=== PATIENT | female | born 1965 | race Caucasian/White ===

== ENCOUNTER → 2023-08-20 09:11 | Outpatient (REF) | payer OTHER, SELFPAY | LOC: HWRAD 09:11 | PROVIDERS: ATTENDING PHYSICIAN Internal Medicine; FAMILY PHYSICIAN Internal Medicine | DX: K75.81 Nonalcoholic steatohepatitis (NASH) (principal) | CPT/HCPCS: 76700 ==

== ENCOUNTER → 2024-01-12 15:44 | Outpatient (REF) | payer OTHER, SELFPAY | LOC: HWRCS 15:44 | PROVIDERS: ATTENDING PHYSICIAN Internal Medicine Interventional Cardiology; FAMILY PHYSICIAN Internal Medicine | DX: I10 Essential (primary) hypertension (principal) | CPT/HCPCS: 93306 ==

== ENCOUNTER → 2024-03-24 15:20 | Outpatient (REF) | payer OTHER, SELFPAY | LOC: HWWDC 15:20 | PROVIDERS: ATTENDING PHYSICIAN Obstetrics & Gynecology Gynecology; FAMILY PHYSICIAN Internal Medicine | DX: Z12.31 Encounter for screening mammogram for malignant neoplasm of breast (principal) | CPT/HCPCS: 77063; 77067 ==

== ENCOUNTER 2024-04-23 22:47 | Emergency (ER) | payer OTHER, SELFPAY ==
[2024-04-23 22:53] VITALS: BMI 40.5
[2024-04-23 23:00] VITALS: BP 146/104
[2024-04-23] MEDS: LET TOPICAL ANESTHETIC GEL 3 ML TOPICAL (23:19)
[2024-04-23] MEDS: PEPCID 20 MG PO (23:19)
--- NOTE | 2024-04-24 00:03 | ED.GENMED ---
History of Present Illness
General
Chief Complaint: Fall
Source: patient and ambulance crew
Exam Limitations: none
Time Seen by Provider: 04/23/24 23:02
Nursing documentation reviewed up to this point in time: agreed with
History of Present Illness
History of Present Illness:
This is a 58-year-old woman who has history of hypertension, GERD, obstructive sleep apnea who states she reached into her car to the passenger side to retrieve a bag in her purse and while attempting to lift these out of her car she remembers
turning and she believes she lost her balance and fell. The next thing she remembers is lying on the ground having struck the back of her head. She complains of a bump to the left posterior scalp region with mild intermittent bleeding from this
area. She also believes she bit the lateral left side of her tongue during the fall. She denies prodrome of dizziness nor lightheadedness nor palpitations. She was not incontinent of bladder nor bowel. She denies neck nor back pain. She does
admit to mild to moderate pain left posterior scalp but denies generalized headache. No vision difficulty. She admits to mild nausea initially which has since resolved. No vomiting.
She has had some intermittent indigestion over the past several weeks and was evaluated by her PCP Thursday, 4 days ago and was recommended to take Pepcid twice daily which has been successful with relief of indigestion.
She denies abdominal pain, no weakness no numbness, she denies extremity pain.
She takes no anticoagulants.
Last Tdap 2.5 years ago, prior to the of her niece.
Past History
Past History
ED Past Medical History: GERD and HTN; Negative CAD, Cancer or CHF
ED Past Surgical History: Cholecystectomy, and Gynecological; Negative Appendectomy, Bowel resection or Cardiac
Social History
Tobacco: Non-smoker
Alcohol: None
Drug: None
Personal:
Living: with family
Employment: Employed
Family History
Family History: Hypertension
Phy Exam
Physical Exam
Physical Exam:
TRAUMA EXAM:
VITAL SIGNS: Vital signs reviewed, cooperative
DISTRESS: No active disease
EYES: Pupils reactive, no orbital trauma
NOSE: No deformity or epistaxis
FACE AND SCALP: There is a left posterior parietal/occipital scalp contusion/hematoma with a 1 cm central laceration with no active bleeding. Moderate local tenderness to palpation. No palpable bony abnormality. External canals no blood. Teeth
are intact, nontender. There is a very superficial abrasion left lateral tongue. No active bleeding, no edema. Posterior pharynx is clear.
NECK: Supple nontender, full range of motion without difficulty nor pain.
BACK: Back nontender, pelvis stable to compression
RESPIRATORY: No distress, breath sounds normal, no tender chest wall
CARDIAC: No murmur, pulses equal and strong
ABDOMEN: Soft nontender bowel sounds normal
SKIN: Skin intact no bleeding, color normal
EXTREMITIES: Nontender, full range of motion without difficulty nor pain.
NEUROLOGICAL: Alert, oriented x 3. GCS of 15. No motor deficits
PSYCH: Mood affect normal
Course
Orders/Labs/Results
Orders:
Orders
04/23/24 22:52
Electrocardiogram (*1) Urgent
Reason for Study: Syncope
EKG- Treatment ONCE
04/23/24 23:13
Famotidine [Pepcid] 20 mg PO NOW STA
Lidocaine/Epinephrine/Tetracai [Let Topical Anesthetic Gel] 3 ml .ROUTE .STK-MED ONE
Lidocaine/Epinephrine/Tetracai [Let Topical Anesthetic Gel] 3 ml TOPICAL NOW STA
04/23/24 23:14
CT Head W/o Iv Contrast Urgent
Comment:
Reason For Exam: fall, post head trauma
04/24/24 00:20
CT Cervical Spine W/o Iv Contr Urgent
Comment:
Reason For Exam: fall, post head trauma-ICH
04/24/24 00:44
Levetiracetam Injectable [Keppra] 1,000 mg IV NOW STA
04/24/24 00:51
Basic Metabolic Panel Urgent
Complete Blood Count/With Diff Urgent
Protime/PTT Urgent
Abnormal Lab Results
04/24/24
00:51
MCV 80.3 L fL
(81.0-99.0)
RDW 15.4 H %
(11.5-14.5)
Absolute Neuts (auto) 8.6 H 10^3/uL
(1.4-6.5)
Neutrophils % 80.9 H %
(42.2-75.2)
Lymphocytes % 12.8 L %
(20.5-51.1)
Carbon Dioxide 21 L mmol/L
(22-30)
BUN 32 H mg/dl
(7-17)
Creatinine 1.3 H mg/dL
(0.6-1.0)
Glucose 139 H mg/dl
(70-99)
04/24/24 00:51
04/24/24 00:51
Vital Signs
Initial and Last Documented VS:
Initial Vital Signs
Temp Pulse Resp Pulse Ox
98.3 F 85 16 100
04/23/24 22:53 04/23/24 22:53 04/23/24 22:53 04/23/24 22:53
Last Documented Vital Signs
Temp Pulse Resp BP Pulse Ox
98.3 F 92 17 157/75 100
04/23/24 22:53 04/24/24 01:00 04/24/24 01:00 04/24/24 00:54 04/23/24 23:45
MDM/Problems Addressed
Differential Diagnosis Includes:
Concern for closed head injury. Will check CT of the head.
Will plan for staple repair of small posterior scalp laceration.
Patient notes 1 to 2-week history of indigestion which thus far has improved with [id number] Pepcid, most consistent with GERD.
Other consideration is ACS however no other associated symptoms and not associated with activity.
EKG is reassuring, normal sinus rhythm, normal axis, normal intervals, no ST-T wave abnormalities. Unchanged from previous June 2023.
Up-to-date with Tdap.
Hemodynamically stable. At this point no indication for laboratory studies.
Will give her usual evening dose of Pepcid now.
*Radiology
Radiology exam reviewed: radiology read reviewed
*Pulse Oximetry
Patient hypoxic: no
*EKG
Interpreted by ED Provider?: Yes
Interpretation: normal
Comparison EKG: no changes
Rate: normal
Rhythm: sinus
[place]: normal axis
Interval: normal interval
QRS Pattern: normal QRS
Ischemia: no ischemia
*[employer] Interpretation
Rate: normal
Interpretation: normal
Rhythm: sinus
*Critical Care Note
Total Time (30-74mins, 75-104mins- exclusive of procedures): 30
comment:
Critical care statement: A total of 30 minutes of critical care time was provided for this patient. This includes management of unstable vital signs, evaluation of the patient at bedside, reviewing the patient's pertinent medical records, discussion
with consultants, review of old EKGs and review of pertinent medical records. This time with separate from time utilized to perform the aforementioned documented procedures
Update Note
Update Note:
00:45
Patient remains awake and alert, oriented x 3, GCS of 15. She does note moderate headache. No return of nausea and no further indigestion.
CAT scan shows bilateral subarachnoid hemorrhage left greater than right, no mass effect nor midline shift.
Initial contact with the [facility], no ICU beds available.
Second contact with [facility], patient accepted level 2 trauma to trauma bay in the ED. Trauma surgeon requests Keppra 1 g IV and to maintain systolic BP less than 140.
Will plan for air transport to [facility].
ED Attending Note
-
Portions of this chart may have been created with voice recognition software.� Occasional wrong word or��sound alike� substitutions may have occurred due to the inherent limitations of voice recognition software.
Discharge Plan
Departure
Patient Disposition: Acute Care Hospital
Date of Disposition: 04/24/24
Time of Disposition: 00:40
Discharge Problem:
traumatic b/l SAH, LEFT POSTERIOR PARIETAL SCALP HEMATOMA
Prescriptions:
No Action
venlafaxine 75 MG capsule,extended release 24hr
75 mg PO HS
folic acid 1 MG tablet
1 mg PO DAILY
albuterol sulfate [Ventolin HFA] 90 MCG/PUFF HFA aerosol inhaler
2 puff inhalation Q4HPRN PRN (Reason: SOB, wheezing)
acetaminophen 325 MG tablet
650 mg PO Q4HPRN PRN (Reason: TEMP > 101) Qty: 0 0RF
metoprolol succinate 50 MG tablet extended release 24 hr
50 mg PO DAILY Qty: 30 3RF
metronidazole 500 MG tablet
500 mg PO Q8 Qty: 9 0RF
pantoprazole 40 MG tablet,delayed release (DR/EC)
40 mg PO BID Qty: 60 3RF
levofloxacin 500 MG tablet
500 mg PO DAILY Qty: 3 0RF
L.acid,para-B.bifidum-S.therm [RisaQuad] 1 CAP capsule
1 cap PO BID Qty: 60 0RF
sucralfate [Carafate] 1 GM/10 ML suspension
1 gm PO QID Qty: 120 0RF
Rx Instructions:
take dose 1hr before meals and bedtime until I see you
Referrals:
UNKNOWN - PT DOES,NOT KNOW [Family Provider] -
Hospital Transfer
Other hospital: [facility]
I certify that the patient requires transfer: Yes
Discussed case with accepting physician: Zander
Reason for transfer: higher level of care and specialties available
Interventions
Interventions:
*Risk Screen - Suicide Last Done: 04/23/24 22:53
*General Assessment Last Done: 04/23/24 22:53
*Neglect/Abuse Screening Last Done: 04/23/24 22:53
*ED COVID-19 Vaccine History Last Done: 04/23/24 23:02
*Nursing Disposition Last Done: 04/24/24 01:25
ED-Musculoskeletal Assessment Last Done: 04/23/24 23:02
ED- Neurological Assessment Last Done: 04/23/24 23:02
ED-Skin Assessment Last Done: 04/23/24 23:09
Discharge Date and Time
Discharge Date/Time: 04/24/24 01:27
Print Language: WOLOF
[2024-04-24 00:54] VITALS: BP 157/75
[2024-04-24 01:09] LABS: % Basophils 0.5 % (0-2); % Eosinophils 0.7 % (0-6); % Immature Granulocytes 0.4 % (0-0.5); % Lymphocytes 12.8 % (20.5-51.1); % Monocytes 4.7 % (1.7-9.3); % Neutrophils 80.9 % (42.2-75.2); Absolute Basophils 0.1 10^3/uL (0-0.2); Absolute Eosinophils 0.1 10^3/uL (0-0.7); Absolute Lymphocytes 1.4 10^3/uL (1.2-3.4); Absolute Monocytes 0.5 10^3/uL (0.1-0.6); Absolute Neutrophils 8.6 10^3/uL (1.4-6.5); Hematocrit 37.1 % (37.0-47.0); Hemoglobin 12.7 g/dL (12.0-16.0); Mean Corp Hgb Conc. 34.2 g/dL (33.0-37.0); Mean Corpuscular Hgb 27.5 pg (27.0-31.0); Mean Corpuscular Volume 80.3 fL (81.0-99.0); Mean Platelet Volume 10.1 fL (7.4-10.4); Nucleated Red Blood Cells % 0 %; Platelet Count 210 10^3/uL (130-400); Red Blood Cell Count 4.62 10^6/uL (4.20-5.40); Red Cell Dist. Width 15.4 % (11.5-14.5); White Blood Cell Count 10.7 10^3/uL (4.8-10.8)
[2024-04-24 01:14] LABS: INR 1.07; PT 14.2 Sec (11.4-14.6)
[2024-04-24 01:15] LABS: APTT 26.6 Sec (23.4-35.0)
[2024-04-24] MEDS: KEPPRA 1000 MG IV (01:15)
[2024-04-24 01:22] LABS: Blood Urea Nitrogen 32 mg/dl (7-17); Calcium 10.2 mg/dl (8.4-10.2); Carbon Dioxide 21 mmol/L (22-30); Chloride 103 mmol/L (98-107); Estimated Creatinine Clearance 53 ml/min; Glucose 139 mg/dl (70-99); Sodium 139 mmol/L (135-145); eGFR 47.08
== END 2024-04-24 01:27 | disposition short-term general hospital (02) ==
LOC: EMR 22:47
PROVIDERS: EMERGENCY PHYSICIAN Emergency Medicine
DX: S06.6X9A Traumatic subarachnoid hemorrhage with loss of consciousness of unspecified duration, initial encounter (principal); S01.01XA Laceration without foreign body of scalp, initial encounter; W19.XXXA Unspecified fall, initial encounter; I10 Essential (primary) hypertension; K21.9 Gastro-esophageal reflux disease without esophagitis; G47.33 Obstructive sleep apnea (adult) (pediatric); Z90.49 Acquired absence of other specified parts of digestive tract
CPT/HCPCS: 12001; 99291; 96374; 70450; 72125; 80048; 85025; 85610; 85730; 93005

== ENCOUNTER → 2024-09-14 09:31 | Outpatient (REF) | payer OTHER, SELFPAY | LOC: HWRAD 09:31 | PROVIDERS: ATTENDING PHYSICIAN Internal Medicine | DX: M25.572 Pain in left ankle and joints of left foot (principal) | CPT/HCPCS: 73610 ==

== ENCOUNTER → 2024-10-19 07:44 | Outpatient (REF) | payer OTHER, SELFPAY | LOC: HWRAD 07:44 | PROVIDERS: ATTENDING PHYSICIAN Internal Medicine; FAMILY PHYSICIAN Internal Medicine | DX: K76.0 Fatty (change of) liver, not elsewhere classified (principal) | CPT/HCPCS: 76700 ==